=== PATIENT | female | born 1945 | race Caucasian/White ===

== ENCOUNTER → 2016-12-19 | Outpatient (CLI) | payer MEDICARE, BC ==
--- NOTE | 2016-12-19 14:01 | RADRPT ---
PROCEDURE: Ultrasound of the right inguinal region. CLINICAL INDICATION: Palpable lesion in the right inguinal region. History of right inguinal parul ia. TECHNIQUE: High-resolution sonography of the right inguinal region at the site of the palpable les ion was performed in the axial and sagittal planes. COMPARISON: None FINDINGS: There is no fluid collection or mass. There is no evidence of hernia. IMPRESSION: 1. No abnormality at the site of the palpable lesion in the right inguinal region. There is no her boogie demonstrated. 2. Any further management regarding the palpable lesion should be based on clinical grounds. RPTAT: QQ .Shahram Vaughn MD, MD Date Time Electronically viewed and signed by .Shahram Vaughn MD, on 12/19/2016 14:01 .R/
== END | disposition home or self-care (01) ==
LOC: U/S 09:50
PROVIDERS: ATTEND Surgery
DX: K40.91 Unilateral inguinal hernia, without obstruction or gangrene, recurrent (principal); R10.30 Lower abdominal pain, unspecified
CPT/HCPCS: 76536